=== PATIENT | male | born 1990 | race Caucasian/White ===

== ENCOUNTER 2017-04-14 13:02 | Inpatient (IN) | payer OTHER ==
[~2017-04-14] VITALS: Ht 167.6 cm; Wt 67.1 kg
[2017-04-14 13:20] VITALS: BP 131/68
--- NOTE | 2017-04-14 13:20 | NUR ---
PRE-ASSESSMENT: Pre-Assessment done at intake office, client is A/O to name, place and time, he presents with flat affect, anxious mood. Goose bumps, clammy skin, and dilated pupils noted, he has difficulty staying still. T 98, RR 18, BP 131/68, HR 104, spO2 @ 100% on RA, Pain 0/10. He is fully ambulatory. He denies any allergy to bee venom, severe reaction, no difficulty breathing, but swelling, no medication for it. NKDA, Regular diet. he denies any withdrawal-induced seizure. PMH: Opioid use, Chronic tobacco use, and Stimulant use. PM surgical: Left shoulder surgery (2012). He reports no PCP and no home medications. He gives verbal consent for HIV test. Protocol regarding vital signs review, client verbalized understanding. Substance use: He reports consuming oxycodone 150 mg daily, snorted, for a week, last used 04/12/17 unknown time. Heroin 1 gram via smoked/IV daily for a week, last used last evening at 2300.
[2017-04-14] MEDS ORDERED: METHOCARBAMOL 750 MG TABLET PO PRN (13:30)
[2017-04-14] MEDS ORDERED: MAGNESIUM HYDROXIDE 30 ML LIQUID UDC PO PRN (13:30)
[2017-04-14] MEDS ORDERED: MAG HYDROX/AL HYDROX/SIMETH 30 ML LIQUID UDC PO PRN (13:30)
[2017-04-14] MEDS ORDERED: LOPERAMIDE HCL 2 MG CAPSULE PO PRN ×2 (13:30)
[2017-04-14] MEDS ORDERED: MIRALAX 17 GM POWD.PACK PO PRN (13:30)
[2017-04-14] MEDS ORDERED: ACETAMINOPHEN 325 MG TABLET PO PRN (13:30)
[2017-04-14] MEDS ORDERED: diphenhydrAMINE 50 MG CAPSULE PO PRN (13:30)
[2017-04-14] MEDS ORDERED: BUPRENORPHINE HCL 2 MG TAB.SUBL SL PRN (13:30)
[2017-04-14] MEDS ORDERED: ONDANSETRON ODT 4 MG TAB.RAPDIS SL PRN (13:30)
[2017-04-14] MEDS ORDERED: IBUPROFEN 600 MG TABLET PO PRN (13:30)
[2017-04-14] MEDS ORDERED: ONDANSETRON 4 MG/2 ML VIAL IM PRN (13:30)
[2017-04-14] MEDS ORDERED: DICYCLOMINE HCL 20 MG TABLET PO PRN (13:30)
--- NOTE | 2017-04-14 13:53 | NUR ---
Admissions Note 26 year old male admitted to [facility] for withdrawal from heroin and non-prescription oxycodone. He reports consuming oxycodone 150 mg daily, snorted, for a week, last used 04/12/17 unknown time. Heroin 1 gram via smoked/IV daily for a week, last used last evening at 2300. He reports using methamphetamine salts 0.5 grams via IV/smoked last used 04/13/17 at 2300. Client is oriented to unit, educated about protocols and how to work TV and call light in his room. Weight: 148 pounds. Height: 5'6" COWS: 8 Client appears anxious, dilated pupils, flushed face and clammy skin, skin intact with well healed small track neri on bilateral forearms. Bilateral lung clear on auscultation, abdomen soft, non-tender, no edema noted. Clients voice is soft, he avoids eye contact. Client has NKDA, reports allergy to Bee-venom. Regular diet ordered. Full code status ordered. Client denies any history of seizures. LBM was 04/14/17, small/formed. Client denies a PCP. He gives verbal consent for PNA vaccine. 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 He reports prior treatments the first at a place called [facility], but can not remember dates and at a detox facility called [facility] for five days and was discharged slightly over one week ago. Dr Cheatham is with client. Urine was collected upon admission. All safety measures instituted. Mallard precaution. Call light within reach. Will continue to monitor.
[2017-04-14 14:24] LABS: *AMPHETAMINE, URINE POSITIVE (NEGATIVE); *BARBITURATE, URINE NEGATIVE (NEGATIVE); *CANNABINOID, URINE NEGATIVE (NEGATIVE); *COCCAINE, URINE NEGATIVE (NEGATIVE); *OPIATE, URINE POSITIVE (NEGATIVE); *PHENCYCLIDINE SCREEN,URINE NEGATIVE (NEGATIVE)
[2017-04-14 14:44] LABS: BASOPHILS % (AUTO) 0.1 % (0.0-2.0); EOSINOPHILS # (AUTO) 0.1 K/uL (0.0-0.7); EOSINOPHILS % (AUTO) 0.4 % (0.0-7.0); HEMOGLOBIN 15.2 G/DL (14.0-18.0); LYMPHOCYTES # (AUTO) 1.6 K/UL (0.8-4.8); LYMPHOCYTES % (AUTO) 10.1 % (20.5-51.5); MEAN CORPUSCULAR HEMOGLOBIN 30.2 UUG (27.0-31.0); MEAN CORPUSCULAR HGB CONC 34 g/dL (32.0-37.0); MEAN CORPUSCULAR VOLUME 89.1 FL (82.0-92.0); MONOCYTES # (AUTO) 0.9 K/UL (0.1-1.30); NEUTROPHILS # (AUTO) 12.8 K/UL (1.8-8.9); NEUTROPHILS % (AUTO) 83.4 % (38.5-71.5); PLATELET COUNT (AUTO) 336 K/UL (150-450); RED BLOOD CELL COUNT(AUTO) 5.05 MIL/UL (4.7-6.1); WHITE BLOOD COUNT (AUTO) 15.4 K/UL (4.0-11.2)
[2017-04-14 14:56] LABS: ALANINE AMINOTRANSFERASE 52 U/L (16-63); ALKALINE PHOSPHATASE 84 U/L (50-136); ASPARTATE AMINOTRANSFERASE 31 U/L (15-37); BILIRUBIN,TOTAL 4.4 mg/dL (0.2-1.0); CARBON DIOXIDE 25 mmol/L (21-32); CHLORIDE 100 mmol/L (98-107); ETHANOL < 3 MG/DL (0-0); GLUCOSE 103 mg/dL (74-106); POTASSIUM 4.1 mmol/L (3.5-5.1); TOTAL PROTEIN, SERUM 8.7 g/dL (6.4-8.2)
[2017-04-14 15:02] LABS: UREA NITROGEN, BLOOD 10 mg/dL (7-18)
--- NOTE | 2017-04-14 15:24 | NUR ---
Client was encouraged to attend the afternoon group. He responded "maybe".
[2017-04-14] MEDS ORDERED: QUETIAPINE FUMARATE 25 MG TABLET PO PRN (15:45)
--- NOTE | 2017-04-14 15:57 | NUR ---
PRN Bentyl, Clonidine, Robaxin Client reports muscle spasms, irritability and lower back muscle spasms, Bentyl 20mg, Clonidine 0.1mg and Robaxin 750mg PO administered, respectively. Risk/benefits discuss, client verbalized understanding. call light within reach.
[2017-04-14] MEDS: CLONIDINE HCL 0.1 MG TABLET PO PRN (15:58)
[2017-04-14 16:55] VITALS: BP 124/78
--- NOTE | 2017-04-14 16:57 | NUR ---
Reassessment PRN Ernesto, Abdulaziz, Robaxin Client reports some relief at muscle spasms, he feel less irritable and some relief at lower back muscle spasms. call light within reach.
[2017-04-14] MEDS: HYDROXYZINE PAMOATE 25 MG CAPSULE PO PRN (17:20)
--- NOTE | 2017-04-14 17:20 | NUR ---
PRN VISTARIL 50MG Client reports anxiety, Vistaril 50mg PO administered. Risk/benefits discuss, client verbalized understanding. call light within reach.
[2017-04-14 17:57] LABS: BAND % (MANUAL) 2 % (0-10); LYMPHOCYTES % (MANUAL) 14 % (20-40); MONOCYTES % (MANUAL) 7 % (2-10); NEUTROPHILS % (MANUAL) 77 % (42-75)
--- NOTE | 2017-04-14 18:20 | NUR ---
Reassessment PRN VISTARIL 50MG Client reports some relief from anxiety, he is watching TV and eating dinner. Vistaril 50mg effective. call light within reach.
--- NOTE | 2017-04-14 19:33 | NUR ---
END OF SHIFT Endorsed to incoming nurse, Client is in room, he presents with anxious mood, flat affect. Last COWS 7. PRN Bentyl. Clonidine. Robaxin and Vistaril given and noted as per protocol. Client has PRN Subutex 4mg for COWS >=12 to manage withdrawal symptoms. NKDA, allergy to bee-venom, full code, regular diet. Call light within reach, safety measures instituted.
--- NOTE | 2017-04-14 19:34 | NUR ---
Start of shift note Received report from day shift nurse. Pt is a 26 yo male, A+Ox4, presenting to [facility] for Opiate/Meth dependence. Pt has Allergies to Bee Venom, is Full code status, and on Regular diet. Pt is on Fall precautions. Pt has no HX to report. Pt is on PRN medications for observation. No s/s of distress noted at this time. Respirations even and unlabored. Will continue to monitor.
--- NOTE | 2017-04-14 20:00 | NUR ---
Tiffany Zepeda, and Seroquel Pt c/o agitation, inability to sleep and general body pain 03/23. PRISCILA Do, Tiffany, and Seroquel givenh Addendum: 04/14/17 at 2002 by MEG POLLOCK LVN .... given and tolerated well. Will reassess within 1 HR. Will continue to monitor.
[2017-04-14 20:17] VITALS: BP 129/74
--- NOTE | 2017-04-14 21:00 | NUR ---
PRN Motrin, Benadryl, and Seroquel Reassessment Medications effective. Pt is resting well in bed. No s/s of ASE/distress noted at this time. Respirations even and unlabored. Will continue to monitor.
[2017-04-15 00:14] VITALS: BP 99/54
[2017-04-15 04:18] VITALS: BP 93/54
--- NOTE | 2017-04-15 06:57 | NUR ---
End of shift note Pt is a 26 yo male, A+Ox4, presenting to [facility] for Opiate/Meth dependence. Pt has Allergies to Bee Venom, is Full code status, and on Regular diet. Pt is on Fall precautions. Pt has no HX to report. Pt is on PRN medications for observation. Pt was given PRN Motrin, Benadryl, and Seroquel @2000. Pt slept for a total of 10 HRS. Last COWS: 1 @0400. No s/s of distress noted at this time. Respirations even and unlabored. Will endorse to day shift nurse.
--- NOTE | 2017-04-15 07:30 | NUR ---
START OF SHIFT Rcvd endorsement, from ongoing nurse, client is in bed, sound asleep, easy to arouse, a/o to name, time, place. he request to let him sleep, feels very tired. Client is a 26 year old male, presenting to [facility] for withdrawal from opiates. Pending development of moderate opioid withdrawal, Buprenorphine 4 mg SL q4h PRN COWS >/=12; hold for HR<60, BP<90/60, RR<10, or altered mental status. Client denies a history of withdrawal-induced seizures. Client has Allergies to Bee Venom, reports NKDA, Full code status, Regular diet. Client is on Fall precautions. PRN Motrin, Benadryl, and Seroquel @2000, he slept for a total of 10 hrs. Last COWS: 1 @ 0400. Side rails x 2 up, bed in lowest/locked position. Call light within reach. Will continue to monitor client.
[2017-04-15 08:00] VITALS: BP 92/52
[2017-04-15] MEDS ORDERED: TUBERCULIN,PURIF.PROT.DERIV. 5 TU/0.1 ML TEST ID ONE (09:00)
[2017-04-15] MEDS: MULTIVITAMINS,THERAPEUTIC TABLET PO SCH (09:00)
[2017-04-15] MEDS: HYDROXYZINE PAMOATE 25 MG CAPSULE PO PRN (11:08)
[2017-04-15] MEDS: CLONIDINE HCL 0.1 MG TABLET PO PRN (11:08)
--- NOTE | 2017-04-15 11:08 | NUR ---
PRN VISTARIL, CLONIDINE Client reports anxiety and irritability, Vistaril 50mg and Clonidine 0.1mg PO administered. Risk/benefits discuss, he verbalized understanding. Call light with reach.
[2017-04-15] MEDS: BUPRENORPHINE HCL 2 MG TAB.SUBL SL SCH ×2 (12:08→20:50)
--- NOTE | 2017-04-15 12:08 | NUR ---
REASSESSMENT PRN VISTARIL, CLONIDINE Client reports some relief anxiety and irritability, Vistaril 50mg and Clonidine 0.1mg effective. Call light with reach.
[2017-04-15 12:10] VITALS: BP 129/73
--- NOTE | 2017-04-15 13:00 | NUR ---
SPECIMEN OF NARES COLLECTED, CLIENT TOLERATED WELL.
[2017-04-15 13:11] LABS: HEPATITIS B SURFACE AG Negative (Negative)
--- NOTE | 2017-04-15 13:48 | NUR ---
Therapist attempted to complete client's biopsychosocial assessment, and client related that he was not feeling well at this time. Therapist informed client that there is daily group psychotherapy at 11am and 3:30pm. Client related that he would try and attend the 3:30pm group session today.
[2017-04-15] MEDS: GABAPENTIN 300 MG CAPSULE PO SCH ×2 (14:08→20:50)
[2017-04-15] MEDS: DICYCLOMINE HCL 20 MG TABLET PO SCH ×2 (14:08→20:50)
[2017-04-15 16:55] VITALS: BP 105/64
--- NOTE | 2017-04-15 19:02 | NUR ---
END OF SHIFT Endorsed to incoming nurse, Client is in room, he presents with depressed mood, flat affect. Last COWS 6 @ 1600. PRN Vistaril, Clonidine given and noted as per protocol. Client started @ 1300 3 day Subutex taper, to manage withdrawal symptoms. Client was not compliant with group therapy. Adequate intake 1979mL and output void x 2, stool x1. NKDA, allergy to bee-venom, full code, regular diet. Call light within reach, safety measures instituted.
--- NOTE | 2017-04-15 19:05 | NUR ---
Start of shift note Received report from day shift nurse. Pt is a 26 yo male, A+Ox4, presenting to [facility] for Opiate/Meth dependence. Pt has Allergies to Bee Venom, is Full code status, and on Regular diet. Pt is on Fall precautions. Pt has no HX to report. Pt is on 3 day modified Subutex taper, tolerated well. No s/s of distress noted at this time. Respirations even and unlabored. Will continue to monitor.
[2017-04-15 20:24] VITALS: BP 104/61
[2017-04-16 00:22] VITALS: BP 112/58
[2017-04-16 04:15] VITALS: BP 107/51
--- NOTE | 2017-04-16 06:57 | NUR ---
End of shift note Pt is a 26 yo male, A+Ox4, presenting to [facility] for Opiate/Meth dependence. Pt has Allergies to Bee Venom, is Full code status, and on Regular diet. Pt is on Fall precautions. Pt has no HX to report. Pt is on 3 day modified Subutex taper, tolerated well. Pt slept for a total of 7 HRS. Last COWS: 2 @0400. No s/s of distress noted at this time. Respirations even and unlabored. Will endorse to day shift nurse.
--- NOTE | 2017-04-16 07:30 | NUR ---
Start of shift note; Received report from night nurse. Patient is a 26 year old male admitted on 04/14/17 for Opiate dependence. Patient is on a 3 day Subutex taper. NKA, allergic to bee venom, full code status, regular diet. Healed track neri noted on patient's bilateral forearms. Patient is on fall and seizure precaution. Bed in lowest position, call light within reach. Will continue to monitor patient.
[2017-04-16 07:46] LABS: BASOPHILS % (AUTO) 0.5 % (0.0-2.0); EOSINOPHILS # (AUTO) 0.1 K/uL (0.0-0.7); EOSINOPHILS % (AUTO) 2.2 % (0.0-7.0); HEMOGLOBIN 13.8 G/DL (14.0-18.0); LYMPHOCYTES # (AUTO) 3.2 K/UL (0.8-4.8); LYMPHOCYTES % (AUTO) 47.3 % (20.5-51.5); MEAN CORPUSCULAR HGB CONC 34 g/dL (32.0-37.0); MEAN CORPUSCULAR VOLUME 90.4 FL (82.0-92.0); MONOCYTES # (AUTO) 0.5 K/UL (0.1-1.30); NEUTROPHILS # (AUTO) 2.7 K/UL (1.8-8.9); PLATELET COUNT (AUTO) 252 K/UL (150-450)
[2017-04-16 07:47] LABS: WHITE BLOOD COUNT (AUTO) 6.5 K/UL (4.0-11.2)
[2017-04-16 07:48] LABS: HEMATOCRIT 40.2 % (40-50); RED BLOOD CELL COUNT(AUTO) 4.45 MIL/UL (4.7-6.1)
[2017-04-16 07:58] LABS: BILIRUBIN,DIRECT 0.2 mg/dL (0.0-0.2); BILIRUBIN,TOTAL 1.4 mg/dL (0.2-1.0)
[2017-04-16 07:59] LABS: BILIRUBIN,DIRECT 0.2 mg/dL (0.0-0.2); BILIRUBIN,TOTAL 1.4 mg/dL (0.2-1.0); CREATININE 1.2 mg/dL (0.6-1.3); MAGNESIUM 1.9 mg/dL (1.8-2.4); POTASSIUM 4.4 mmol/L (3.5-5.1)
[2017-04-16 08:00] VITALS: BP 102/60
[2017-04-16] MEDS: BUPRENORPHINE HCL 2 MG TAB.SUBL SL SCH ×3 (08:48→21:14)
[2017-04-16] MEDS: DICYCLOMINE HCL 20 MG TABLET PO SCH ×3 (08:48→21:14)
[2017-04-16] MEDS: GABAPENTIN 300 MG CAPSULE PO SCH ×3 (08:48→21:13)
[2017-04-16] MEDS: MULTIVITAMINS,THERAPEUTIC TABLET PO SCH (08:48)
[2017-04-16 12:00] VITALS: BP 99/58
--- NOTE | 2017-04-16 14:35 | NUR ---
Therapist reminded client of group times. Client did not attend morning group because he was tired.
[2017-04-16] MEDS ORDERED: PNEUMOCOCCAL 23-VAL P-SAC VAC 0.5 ML VIAL IM ONE (15:00)
[2017-04-16 16:00] VITALS: BP 108/56
--- NOTE | 2017-04-16 19:06 | NUR ---
End of shift note; Patient is AOX4. Patient is a 26 year old male admitted on 04/14/17 for Opiate dependence. Patient is on a 3 day Subutex taper. NKA, allergic to bee venom, full code status, regular diet. Healed track neri noted on patient's bilateral forearms. Patient is on fall and seizure precaution. Bed in lowest position, call light within reach. Patient remained compliant with treatment plan. Medications were effective in reducing withdrawal symptoms. Met all needs.
[2017-04-16 20:00] VITALS: BP 106/59
--- NOTE | 2017-04-16 20:00 | NUR ---
Start of Shift Pt is a 26 year old male admitted for Opiate dependence, placed on 3 day modified Subutex taper. Pt reported using Oxycodone 50mg /daily, heroin IV 1g/daily and Methamphetamine 0.5gm/daily. PMH: Opioid use, stimulant use and chronic tobacco use. Pt is allergic to venom-honey bee, regular diet, fall precautions and full code. Upon assessment, reports feeling anxious, reports chills throughout body, nasal stuffiness and teary eyes noted, respirations even/unlabored, denies SOB/chest pain, bowel sounds active x4, abdomen soft. Safety measures in place, call light within reach, side rails up x2, bed locked and in low position. Will continue to monitor
[2017-04-17] VITALS: BP 104/55
--- NOTE | 2017-04-17 | NUR ---
Vital Signs BP 104/55, Pulse 55, respirations 14, SpO2 96%, temp 97.6, pain 0/10 COWS deferred d/t pt sleeping - to assess while pt is awake as ordered. Safety measures in place. Will continue to monitor.
[2017-04-17 04:00] VITALS: BP 100/56
--- NOTE | 2017-04-17 04:00 | NUR ---
Vital Signs BP 100/56, Pulse 64, respirations 20, SpO2 96%, temp 98, pain 0/10 COWS deferred d/t pt sleeping - to assess while pt is awake as ordered. Safety measures in place. Will continue to monitor.
--- NOTE | 2017-04-17 07:00 | NUR ---
End of Shift Pt is a 26 year old male admitted for Opiate dependence, placed on 3 day modified Subutex taper. Pt reported using Oxycodone 50mg /daily, heroin IV 1g/daily and Methamphetamine 0.5gm/daily. PMH: Opioid use, stimulant use and chronic tobacco use. Pt is allergic to venom-honey bee, regular diet, fall precautions and full code. During shift, pt presented with anxiety, reported chills throughout body, nasal stuffiness and teary eyes - scheduled taper medications administered, COWS 4. Pt noted to be isolative to room, encouraged to participate in program. No PRN medications administered during shift. Pt slept for 8 hours, intake of 1327 ml PO and voids x2. Safety measures in place, call light within reach, side rails up x2, bed locked and in low position. Endorsed to day shift nurse.
[2017-04-17 08:00] VITALS: BP 100/60
--- NOTE | 2017-04-17 08:20 | NUR ---
START OF SHIFT: RECEIVED PT A/O X 4. HE REPORTS CHILLS,SWEATS,MILD BODY ACHES AND ANXIETY. COWS 4 SUBUTEX TAPER IN PROGRESS. HE STATES HE SLEPT OK. PT STATES HE WILL TRY AND ATTEND GROUPS AND ACTIVITIES TODAY. ENCOURAGED INCREASED FLUIDS TO ASSIST IN FACILITATING DETOX PROCESS. WILL CONTINUE TO MONITOR AND PROVIDE SAFE AND SUPPORTIVE ENVIRONMENT.
[2017-04-17] MEDS ORDERED: BUPRENORPHINE HCL 2 MG TAB.SUBL SL SCH (09:00)
[2017-04-17] MEDS: MULTIVITAMINS,THERAPEUTIC TABLET PO SCH (09:07)
[2017-04-17] MEDS: DICYCLOMINE HCL 20 MG TABLET PO SCH ×3 (09:08→21:09)
[2017-04-17] MEDS: GABAPENTIN 300 MG CAPSULE PO SCH ×3 (09:08→21:10)
[2017-04-17 12:00] VITALS: BP 106/60
[2017-04-17] MEDS ORDERED: IBUP-1955 PO (12:44)
[2017-04-17] MEDS ORDERED: HYDR-3895 PO (12:44)
[2017-04-17] MEDS ORDERED: DICY20TA28 PO (12:44)
[2017-04-17] MEDS ORDERED: QUET25TA PO (12:44)
[2017-04-17] MEDS ORDERED: CLON0.1T14 PO (12:44)
[2017-04-17] MEDS ORDERED: GABA-534 PO (12:44)
[2017-04-17 16:00] VITALS: BP 98/60
[2017-04-17 17:45] LABS: *AMPHETAMINE, URINE NEGATIVE (NEGATIVE); *BARBITURATE, URINE NEGATIVE (NEGATIVE); *CANNABINOID, URINE NEGATIVE (NEGATIVE); *COCCAINE, URINE NEGATIVE (NEGATIVE); *OPIATE, URINE NEGATIVE (NEGATIVE); *PHENCYCLIDINE SCREEN,URINE NEGATIVE (NEGATIVE)
--- NOTE | 2017-04-17 18:50 | NUR ---
END OF SHIFT: PT COMPLETED SUBUTEX TAPER. LAST COWS 5. HE C/O CHILLS,SWEATS, BODY ACHES AND RESTLESSNESS TODAY . LAST COWS 5. HE IS COMPLIANT WITH GROUPS AND ACTIVITIES. DISCHARGE PLANNING IN PROGRESS FOR 04/18. UDS COLLECTED. WILL PASS SHIFT REPORT TO ONCOMING NIGHT NURSE.
--- NOTE | 2017-04-17 19:15 | NUR ---
START OF SHIFT Received 26 year old male patient admitted on 04/14/17. for Oxycodone, Heroin and Meth dependency. Pt is full code with allergy to bee venom. Pt with PMHx of opioid use, and stimulant use. Pt reports using Oxycodone (snort) 15o mg daily for one week. Last dose was 150 mg on 04/12/17. Heroin (IV/Snort) 1 gram daily for 1 week. Last dose was 1 gram on 04/13/17. Meth (IV/snort) 0.5 gram daily for one week. Last dose as 0.5 gram on 04/13/17. Pt placed on 3 day modified Subutex taper started on 04/15/17 and tolerating well. Per endorsement, pt is scheduled to be DC tomorrow to [facility]. Pt is alert and oriented x4, breathing is even and unlabored. Safety measures in place. Will continue to monitor.
[2017-04-17 20:00] VITALS: BP 119/68
[2017-04-18] VITALS: BP 110/60
[2017-04-18 04:00] VITALS: BP 105/58
--- NOTE | 2017-04-18 07:01 | NUR ---
END OF SHIFT Pt is a 26 year old male patient admitted on 04/14/17. for Oxycodone, Heroin and Meth dependency. Pt is full code with allergy to bee venom. Pt completed his 3 day modified Subutex taper started on 04/15/17 and tolerated well. He is scheduled to be DC today to [facility]. He did not receive or request PRN mediations. He slept a total of 6 hrs, Intake: 946 mL, Void: x1, BM: 0, COWS:1. Pt remains alert and oriented x4, breathing is even and unlabored. Safety measures in place. Endorsed to oncoming shift.
--- NOTE | 2017-04-18 07:41 | NUR ---
START OF SHIFT NOTE Patient scheduled for discharge. Patient completed Ativan taper. UDS collected and in chart. No PRNS given last shift. Patient slept 6 hours. Last COWS 1 per night nurse. Patient states he feels good and is ready for discharge. Vital signs stable. Will discharge patient this shift.
[2017-04-18 08:00] VITALS: BP 118/67
[2017-04-18] MEDS: DICYCLOMINE HCL 20 MG TABLET PO SCH (08:16)
[2017-04-18] MEDS: MULTIVITAMINS,THERAPEUTIC TABLET PO SCH (08:16)
[2017-04-18] MEDS: GABAPENTIN 300 MG CAPSULE PO SCH (08:16)
--- NOTE | 2017-04-18 10:21 | NUR ---
discharge note: pt is medically cleared for discharge. Pt left the unit in stable condition, no pain discomfort or any withdrawal symptoms. pt's V/S WNL. pt teaching was administered and pt verbalized understanding. all personal belongings were returned to pt. pt denied any discharge locations and was discharged to [facility]
== END 2017-04-18 10:21 | disposition other institution (70) | DRG 895 ==
LOC: SRC 13:07
PROVIDERS: ADMIT Internal Medicine; ATTEND Internal Medicine
PROC: HZ2ZZZZ Detoxification Services for Substance Abuse Treatment (ICD-10-PCS; principal; 2017-04-14)
PROC: HZ31ZZZ Individual Counseling for Substance Abuse Treatment, Behavioral (ICD-10-PCS; 2017-04-16)
DX: F11.23 Opioid dependence with withdrawal (principal); F11.259 Opioid dependence with opioid-induced psychotic disorder, unspecified; E80.6 Other disorders of bilirubin metabolism; Z72.0 Tobacco use; D72.829 Elevated white blood cell count, unspecified; F15.10 Other stimulant abuse, uncomplicated
CPT/HCPCS: 36415; 71010; 80307; 80324; 80361; 83735; 84443; 85025; 86592; 86705; 86803; 87340; 87806; A4663; G0480; Q0163